=== PATIENT | male | born 1990 | race Two or more races ===

== ENCOUNTER 2024-12-07 19:48 | Emergency (ER) | payer MEDICAID, OTHER ==
[~2024-12-07] VITALS: Ht 175.3 cm; Wt 107.7 kg
[2024-12-07 21:50] VITALS: BP 137/79; PULSE 103
[2024-12-07 22:09] VITALS: TEMP 102.5
[2024-12-07] MEDS: IBUPROFEN 800 MG TAB PO ONE (22:09)
[2024-12-07] MEDS: ACETAMINOPHEN 500 MG TAB or CAP PO ONE (22:09)
[2024-12-07 22:15] LABS: COVID19 ANTIGEN SOFIA FIA NEGATIVE (NEGATIVE)
[2024-12-07 22:17] LABS: Rapid Influenza B Negative (Negative)
[2024-12-07 22:19] LABS: Rapid Influenza A Positive (Negative)
[2024-12-07] MEDS: ALBUTEROL SULF 2.5 MG/0.5ML(0.5%) NEB SOLN NEB ONE (22:21)
[2024-12-07] MEDS: IPRATROPIUM BROM 0.5 MG/2.5ML INH SOL NEB ONE (22:21)
[2024-12-07 22:22] VITALS: RESP 16; O2SAT 97
--- NOTE | 2024-12-07 22:30 | DVH ---
CHEST RADIOGRAPH Indication: cough Technique: Frontal and lateral view of the chest was obtained Comparison: None FINDINGS: Lines and Tubes: None Lungs: Clear Pleura: No effusion. No pneumothorax. Cardiomediastinal contours: Unremarkable Bones: Unremarkable IMPRESSION: No evidence of acute disease.
[2024-12-07] MEDS ORDERED: OSEL75CA5 PO (22:50)
[2024-12-07] MEDS ORDERED: IBU600T PO (22:50)
--- NOTE | 2024-12-07 22:50 | ED.PDOC ---
SOB-HPI HPI Comments This is a 34-year-old male presents to the ED chief complaint flu-like symptoms times 24 hours. Patient complaining of nausea, vomiting, cough, nasal congestion, fevers body aches. Has been taking [id number] medications with little relief. Denies chest pain, difficulty breathing, shortness of breath, diarrhea Chief Complaint: Flu like Time Seen by MD: 19:54 Reviewed notes: Nurses Notes, Medications, Allergies Information Source: Patient Mode of Arrival: Ambulatory Past Medical History PAST MEDICAL HISTORY: Denies Surgical History: Denies all surgeries Family History Family History: Reviewed,noncontributory to illness, No family hx of Cancer, No family hx of DM, No family hx of Heart paul, No family hx of HTN, No family hx ofKidney paul, No family hx of Liver paul, No family hx of Lung paul, No family hx of Stroke Social History Smoker: Non-Smoker Alcohol: Denies ETOH Use Drugs: Denies Drug Use Constitutional: reports: fatigue, fever; denies: chills, diaphoresis, malaise, sweats, weakness, others EENTM: reports: nasal discharge; denies: blurred vision, double vision, ear bleeding, ear discharge, ear drainage, ear pain, ear ringing, eye pain, eye redness, hearing loss, mouth pain, mouth swelling, nose bleeding, nose congestion, nose pain, photophobia, tearing, throat pain, throat swelling, voice changes, others Respiratory: reports: cough, wheezing; denies: hemoptysis, orthopnea, SOB at rest, shortness of breath, SOB with excertion, stridor, others Cardiovascular: denies: chest pain, dizzy spells, diaphoresis, Dyspnea on exertion, edema, irregular heart beat, left arm pain, lightheadedness, palpitations, PND, syncope, others Gastrointestinal: denies: abdomen distended, abdominal pain, blood streaked bowels, constipated, diarrhea, dysphagia, difficulty swallowing, hematemesis, melena, nausea, poor appetite, poor fluid intake, rectal bleeding, rectal pain, vomiting, others Genitourinary: denies: burning, dysuria, flank pain, frequency, hematuria, incontinence, penile discharge, penile sore, pain, testicle pain, testicle swelling, urgency, others Neurological: denies: dizziness, fainting, headache, left sided numbness, left sided weakness, numbness, paresthesia, pre-existing deficit, right sided numbness, right sided weakness, seizure, speech problems, tingling, tremors, weakness, others Musculoskeletal: denies: back pain, gout, joint pain, joint swelling, muscle pain, muscle stiffness, neck pain, others Integumetry: denies: bruises, change in color, change in hair/nails, dryness, laceration, lesions, lumps, rash, wounds, others Allergic/Immunocompromised: denies: Difficulty Healing, Frequent Infections, Hives, Itching, others Hematologic/Lymphatic: denies: anemia, blood clots, easy bleeding, easy bruising, swollen glands, others Endocrine: denies: excessive hunger, excessive sweating, excessive thirst, excessive urination, flushing, intolerance to cold, intolerance to heat, unexplained weight gain, unexplained weight loss, others Psychiatric: denies: anxiety, bipolar disorder, depression, hopeless, panic disorder, schizophrenia, sleepless, suicidal, others Physical Exam General Appearance: No Apparent Distress, Normal HEENT: Pharyngeal Erythema, TMs Normal Neck: Full Range of Motion, Non-Tender Respiratory: No Respiratory Distress, Wheezing Cardiovascular: No Edema, No JVD, No Murmur, No Gallop, Normal Peripheral Pu lses, Regular Rate/Rhythm Breast Exam: Deferred Gastrointestinal: No Organomegaly, Non Tender, No Pulsatile Mass, Normal Bowel Sounds, Soft Genitalia: Deferred Pelvic: Deferred Rectal: Deferred Extremities: No calf tenderness, Normal capillary refill, Normal inspection, Normal range of motion, Non-tender, No pedal edema Musculoskeletal : Apperance: Normal Neurologic: Alert, die cutter apprentice II-XII nml as Tested, No Motor Deficits, Normal Affect, Normal Mood, No Sensory Deficits Cerebellar Function: Normal Reflexes: Normal Skin: Dry, Normal Color, Warm Lymphatic: No Adenopathy Was a procedure done? Was a procedure done?: No Differential Dx Differential Diagnosis: Asthma, Bronchitis, Pneumonia X-Ray, Labs, Meds, VS Vital Signs Date Time Temp Pulse Resp B/P (MAP) Pulse Ox O2 Delivery O2 Flow Rate FiO2 12/07/24 22:22 16 97 Room Air* 0 21 12/07/24 22:09 102.5 12/07/24 22:09 102.5 12/07/24 21:50 102.5 103 18 137/79 (98) 94 102.5 12/07/24 21:50 103 18 94 Room Air 12/07/24 21:27 Room Air* 0 21 12/07/24 21:11 99.6 119 18 124/89 (101) 95 Lab Test 12/07/24 20:33 Range/Units Influenza Type A Antigen Positive Negative Influenza Type B Antigen Negative Negative SARS-CoV-2 Antigen (Rapid) Negative NEGATIVE Current Medications Medications (Trade) Dose Ordered Sig/[place]ron Route Start Time Stop Time Status Last Admin Ibuprofen (Motrin Tablet) 800 mg ONCE ONCE PO 12/07/24 22:00 12/07/24 22:01 DC 12/07/24 22:09 Ipratropium [place] (Atrovent Medneb) 0.5 mg ONCE ONCE NEB 12/07/24 22:00 12/07/24 22:01 DC 12/07/24 22:21 Albuterol (Ventolin Medneb) 2.5 mg ONCE ONCE NEB 12/07/24 22:00 12/07/24 22:01 DC 12/07/24 22:21 Acetaminophen (Tylenol Tablet Or Capsule) 500 mg ONCE ONCE PO 12/07/24 22:00 12/07/24 22:01 DC 12/07/24 22:09 X-Ray, Labs, Meds, VS Comment Patient positive for flu A. Patient given 1 g of Tylenol and 800 mg of Motrin for his fever patient afebrile on discharge. Patient was given a duo neb reports improvement lung sounds clear equal bilateral after treatment. Chest x-ray shows no acute cardiopulmonary findings. Patient requesting discharge at this time. Trial Tamiflu and 600 mg of ibuprofen t.i.d. p.r.n.. Advised to rest increase p.o. fluids with electrolytes advised to follow up with his PCP within 2-3 days as necessary ER r eturn precautions given patient indicated understanding agrees with discharge care plan. Time of 1ST Reevaluation: 22:47 Reevaluation 1ST: Improved Patient Education/Counseling: Diagnosis, Treatment, Prognosis, Need For Follow Up Family Education/Counseling: No Family Present Departure 1 Departure Time of Disposition: 22:47 Impression: Primary Impression: Influenza A Disposition: HOME / SELF CARE / HOMELESS Condition: Stable e-Prescriptions Ibuprofen Micronized (MOTRIN TABLET) 600 Mg Tb 600 MG PO TID PRN for 4 Days, #12 TAB *Black box warning-NSAIDS can increase risk of [place] & hypertension, GI irritation, ulceration, bleed, perferation. Do not use post cardiac surgery. Use short duration/lowest effective dose. Prov: SAMIA JULIO 12/07/24 Oseltamivir Phosphate (Tamiflu) 75 Mg Cap 1 CAP PO BID for 5 Days, #10 CAP Prov: SAMIA JULIO 12/07/24 Discharged With: Self Critical Care Note Critical Care Time?: No Stability Stability form required: No Heart Score Heart Score: Heart Score Response (Comments) Value History N/A 0 EKG N/A 0 Age <45 0 Risk Factors N/A 0 Troponin N/A 0 Total 0 SAMIA JULIO Dec 07, 2024 22:50
== END 2024-12-07 23:07 | disposition home or self-care (01) ==
LOC: ER 19:48
DX: J10.1 Influenza due to other identified influenza virus with other respiratory manifestations (principal); Z20.822 Contact with and (suspected) exposure to COVID-19
CPT/HCPCS: 36415; 71046; 87426; 87804; 94640